=== PATIENT | female | born 1965 | race Caucasian/White ===

== ENCOUNTER 2024-05-06 15:57 | Inpatient (IN) | payer BC ==
[2024-05-06 16:28] VITALS: BMI 27.6
[2024-05-06] MEDS ORDERED: Insulin Lispro 100 UNIT/ML 10 ML VIAL SC PRN (18:00)
[2024-05-06] MEDS ORDERED: Ondansetron PF 4 MG/2 ML Vial IVP PRN (18:00)
[2024-05-06] MEDS ORDERED: Dextrose 50% Abboject 50 ML SYRINGE SLOW IVP PRN (18:00)
[2024-05-06] MEDS ORDERED: Glucagon 1 MG/ML KIT IM PRN (18:00)
[2024-05-06] MEDS ORDERED: Acetaminophen 325 MG TAB PO PRN (18:00)
[2024-05-06] MEDS ORDERED: Dextrose 5% in Water 1,000 ML IV PRN (18:00)
[2024-05-06 20:16] LABS: Troponin I 0.013 ng/mL (< 0.028)
[2024-05-06] MEDS: traZODone HCl 50 MG TAB PO SCH (20:32)
[2024-05-06] MEDS: Losartan 25 MG TAB PO SCH (20:33)
[2024-05-06] MEDS: Heparin 5,000 UNITS/ML VIAL SC SCH (20:33)
[2024-05-06] MEDS: Nitroglycerin 0.4 MG TAB (25 Tab Bottle) SL PRN (20:33)
[2024-05-06] MEDS: traMADol HCl 50 MG TAB PO PRN (21:04)
[2024-05-07 04:53] LABS: #Basophils 0.08 10x3/uL (0.0-0.2); %Eosinophils 2.2 % (0.0-10.0); %Monocytes 6.3 % (0.0-10.0); %Neutrophils 41.4 % (42.0-75.0); Hemoglobin 10.7 g/dL (12.0-16.0); Mean Corpuscular HGB CONC 33.4 g/dL (32.0-36.0); Mean Corpuscular Hemoglobin 30.7 pg (27.0-31.0); Mean Platelet Volume 11.1 fL (7.4-10.4); Platelet Count 274 10x3/uL (130-400); Red Blood Cell (RBC) Count 3.48 mill/uL (4.20-5.40)
[2024-05-07 05:17] LABS: Anion Gap 17 mmol/L (10-20); BUN (Urea Nitrogen) 20 mg/dL (9.8-20.1); Calc. Creatinine Clearance 60 mL/min (70-130); Calcium 8.3 mg/dL (7.8-10.44); Carbon Dioxide 22 mmol/L (22-29); Chloride 105 mmol/L (98-107); Estimated GFR 59; Glucose 105 mg/dL (70-105); Potassium 3.6 mmol/L (3.5-5.1); Sodium 140 mmol/L (136-145); Troponin I 0.011 ng/mL (< 0.028)
[2024-05-07] MEDS: Levothyroxine Sodium 75 MCG TAB PO SCH (05:31)
[2024-05-07] MEDS: Sertraline 100 MG TAB PO SCH (08:26)
[2024-05-07] MEDS: Famotidine 20 MG TAB PO SCH (08:26)
[2024-05-07] MEDS: Atorvastatin Calcium 40 MG TAB PO SCH (08:26)
[2024-05-07] MEDS: Aspirin 81 mg Enteric Coated Tablet PO SCH (08:26)
[2024-05-07] MEDS ORDERED: Regadenoson 0.4 MG/5 ML SYRINGE ONE (09:59)
[2024-05-08 05:24] LABS: #Basophils 0.08 10x3/uL (0.0-0.2); %Lymphocytes 36.4 % (21.0-51.0); %Monocytes 7.8 % (0.0-10.0); %Neutrophils 52.4 % (42.0-75.0); Hematocrit 35.5 % (36.0-47.0); Hemoglobin 11.8 g/dL (12.0-16.0); Mean Corpuscular HGB CONC 33.2 g/dL (32.0-36.0); Mean Corpuscular Hemoglobin 30.1 pg (27.0-31.0); Mean Corpuscular Volume 90.6 fL (78.0-98.0); Mean Platelet Volume 10.7 fL (7.4-10.4); Platelet Count 311 10x3/uL (130-400); RBC Distribution Width 12.8 % (11.5-14.5); Red Blood Cell (RBC) Count 3.92 mill/uL (4.20-5.40)
[2024-05-08 05:54] LABS: Anion Gap 16 mmol/L (10-20); BUN (Urea Nitrogen) 16 mg/dL (9.8-20.1); Calc. Creatinine Clearance 49 mL/min (70-130); Calcium 8.3 mg/dL (7.8-10.44); Carbon Dioxide 25 mmol/L (22-29); Chloride 103 mmol/L (98-107); Estimated GFR 47; Glucose 110 mg/dL (70-105); Sodium 140 mmol/L (136-145)
[2024-05-08 09:07] VITALS: TEMP 97.6
[2024-05-08 10:25] VITALS: BP 133/70
== END 2024-05-08 10:35 | disposition home or self-care (01) | DRG 313 ==
LOC: OBS 15:57 → INTOOBSV 15:57 → OBSVTOIN 05-07 18:21
PROVIDERS: ADMIT Family Medicine; ATTEND Internal Medicine
PROC: 3E033GC Introduction of Other Therapeutic Substance into Peripheral Vein, Percutaneous Approach (ICD-10-PCS; principal; 2024-05-06)
DX: R07.89 Other chest pain (principal); I10 Essential (primary) hypertension; E78.5 Hyperlipidemia, unspecified; E11.9 Type 2 diabetes mellitus without complications; E03.9 Hypothyroidism, unspecified; Z85.850 Personal history of malignant neoplasm of thyroid; Z88.8 Allergy status to other drugs, medicaments and biological substances; Z90.49 Acquired absence of other specified parts of digestive tract; Z79.890 Hormone replacement therapy; Z79.82 Long term (current) use of aspirin; Z79.899 Other long term (current) drug therapy
CPT/HCPCS: 36415; 36416; 71045; 78452; 80048; 80053; 83690; 84484; 85025; 85379; 93005; 93017; 96372; 96374; A9502; G0378; J1644; J2270; J2785